=== PATIENT | female | born 1935 | race Caucasian/White ===

== ENCOUNTER 2020-04-25 12:53 | Inpatient (IN) | payer OTHER ==
[2020-04-25 13:09] VITALS: BMI 25.7
[2020-04-25] MEDS ORDERED: ADENOSINE 6 MG/2 ML VIAL IVPUSH ONE ×2 (13:09→13:20)
[2020-04-25] MEDS ORDERED: METOPROLOL TARTRATE 5 MG/5 ML VIAL ONE (13:16)
[2020-04-25] MEDS ORDERED: METOPROLOL TARTRATE 5 MG/5 ML VIAL IVPUSH ONE ×2 (13:20→13:22)
[2020-04-25] MEDS ORDERED: SODIUM CHLORIDE 1,000 ML IV ONE (13:21)
[2020-04-25] MEDS ORDERED: dilTIAZem HCL 125 MG/25 ML - 25 ML VIAL ONE (13:34)
[2020-04-25] MEDS ORDERED: dilTIAZem HCL 30 MG TABLET PO ONE (13:50)
[2020-04-25] MEDS ORDERED: dilTIAZem HCL 50 MG/10 ML - 10 ML VIAL IVPUSH ONE ×2 (13:50→13:53)
[2020-04-25 13:59] LABS: BASO % 0.2 % (0-2.0); HEMATOCRIT 41.8 % (32.4-45.2); HEMOGLOBIN 13.9 GM/dL (10.7-15.3); LYMPH % 7.8 % (8-40); MCH 30.5 pg (25.7-33.7); MCHC 33.3 g/dl (32.0-36.0); MEAN CELL VOLUME 91.7 fl (80-96); MEAN PLT VOLUME 9.7 fl (7.5-11.1); MONO % 6.6 % (3.8-10.2); NEUT % 85.4 % (42.8-82.8); PLATELET COUNT 252 K/MM3 (134-434); RBC 4.56 M/mm3 (3.60-5.2); RDW 12.4 % (11.6-15.6); WHITE BLOOD COUNT 9.1 K/mm3 (4.0-10.0)
[2020-04-25 14:04] LABS: INR 1.13 (0.83-1.09); PROTHROMBIN TIME (PATIENT) 13.6 SEC (9.7-13.0)
[2020-04-25] MEDS ORDERED: dilTIAZem HCL 30 MG TABLET ONE (14:05)
[2020-04-25 14:21] LABS: POTASSIUM 5.1 mmol/L (3.5-5.1)
[2020-04-25 14:25] LABS: CALCIUM 9.1 mg/dL (8.5-10.1)
[2020-04-25 14:26] LABS: BLOOD UREA NITROGEN 43.7 mg/dL (7-18)
[2020-04-25 14:29] LABS: CREATININE 1.5 mg/dL (0.55-1.3)
[2020-04-25 14:30] LABS: BILIRUBIN,TOTAL 0.6 mg/dL (0.2-1); TOT PROT 7.8 g/dl (6.4-8.2)
[2020-04-25] MEDS ORDERED: ASPIRIN 81 MG CHEWABLE TABLETS PO ONE (15:53)
[2020-04-25] MEDS ORDERED: SODIUM CHLORIDE 500 ML IV STA (15:55)
[2020-04-25] MEDS ORDERED: ASPIRIN 81 MG CHEWABLE TABLETS ONE (15:57)
[2020-04-25] MEDS ORDERED: SODIUM CHLORIDE 250 ML IV STA (17:40)
[2020-04-25] MEDS ORDERED: SODIUM CHLORIDE 0.9% 500 ML INFUS.BAG IV ONE (18:29)
[2020-04-25] MEDS: APIXABAN 2.5 MG TABLET PO SCH (22:18)
[2020-04-25] MEDS: ASCORBIC ACID 500 MG TABLET (FP) PO SCH (22:18)
[2020-04-25] MEDS: INSULIN SLIDING SCALE (NOVOLOG) 1 VIAL SQ SCH (22:38)
[2020-04-26] MEDS: INSULIN SLIDING SCALE (NOVOLOG) 1 VIAL SQ SCH ×4 (06:48→21:51)
[2020-04-26 07:47] LABS: BASO % 0.3 % (0-2.0); HEMATOCRIT 36.8 % (32.4-45.2); HEMOGLOBIN 12.5 GM/dL (10.7-15.3); LYMPH % 11.3 % (8-40); MCH 30.9 pg (25.7-33.7); MEAN PLT VOLUME 9.1 fl (7.5-11.1); MONO % 6.8 % (3.8-10.2); NEUT % 81.6 % (42.8-82.8); PLATELET COUNT 222 K/MM3 (134-434); RBC 4.04 M/mm3 (3.60-5.2); RDW 12.7 % (11.6-15.6); WHITE BLOOD COUNT 8.9 K/mm3 (4.0-10.0)
[2020-04-26 08:03] LABS: ACTIVATED PTT 27.9 SECONDS (25.2-36.5); INR 1.18 (0.83-1.09); PROTHROMBIN TIME (PATIENT) 14.5 SEC (9.7-13.0)
[2020-04-26 08:30] LABS: ALBUMIN 2.7 g/dl (3.4-5.0); BLOOD UREA NITROGEN 41.2 mg/dL (7-18); CALCIUM 8.7 mg/dL (8.5-10.1); MAGNESIUM 2.1 mg/dL (1.8-2.4)
[2020-04-26 08:33] LABS: BILIRUBIN,TOTAL 0.6 mg/dL (0.2-1); CREATININE 0.9 mg/dL (0.55-1.3); PHOSPHOROUS 3.9 mg/dL (2.5-4.9)
[2020-04-26 08:35] LABS: TOT PROT 6.8 g/dl (6.4-8.2)
[2020-04-26] MEDS ORDERED: METOPROLOL TARTRATE 25 MG TABLET (FP) PO SCH ×2 (10:00)
[2020-04-26] MEDS: CHOLECALCIFEROL (VIT D3) 1,000 UNIT (25 MCG) TABLET PO SCH (10:39)
[2020-04-26] MEDS: ASCORBIC ACID 500 MG TABLET (FP) PO SCH ×2 (10:39→21:49)
[2020-04-26] MEDS: DEXAMETHASONE SOD PHOSPHATE 4 MG/1 ML VIAL IVPUSH SCH (10:39)
[2020-04-26] MEDS: APIXABAN 2.5 MG TABLET PO SCH (10:39)
[2020-04-26] MEDS: ZINC SULFATE 220 MG CAPSULE (FP) PO SCH (10:39)
[2020-04-26] MEDS ORDERED: REMDESIVIR 200 MG in SODIUM CHLORIDE 210 ML IVPB ONE (13:00)
[2020-04-26] MEDS ORDERED: METOPROLOL TARTRATE 5 MG/5 ML VIAL ONE (19:10)
[2020-04-26] MEDS ORDERED: METOPROLOL TARTRATE 5 MG/5 ML VIAL IVPUSH ONE (19:10)
[2020-04-26] MEDS: DILTIAZEM INJECTION 125 MG in SODIUM CHLORIDE 100 ML IVPB SCH (19:30)
[2020-04-26] MEDS: METOPROLOL TARTRATE 25 MG TABLET (FP) PO SCH (21:48)
[2020-04-26] MEDS: APIXABAN 5 MG TABLET PO SCH (21:49)
[2020-04-26] MEDS: dilTIAZem HCL 30 MG TABLET PO SCH (23:37)
[2020-04-27] MEDS ORDERED: METOPROLOL TARTRATE 25 MG TABLET (FP) PO ONE (00:45)
[2020-04-27] MEDS: DILTIAZEM INJECTION 125 MG in SODIUM CHLORIDE 100 ML IVPB SCH ×2 (01:10→03:00)
[2020-04-27] MEDS ORDERED: ACETAMINOPHEN 1000 MG/100 ML VIAL (NON FORMULARY) IVPB ONE (01:16)
[2020-04-27] MEDS ORDERED: ACETAMINOPHEN INJECTION 100 ML IVPB ONE (01:17)
[2020-04-27] MEDS ORDERED: DIGOXIN 0.25 MG TABLET (FP) ONE ×2 (02:53→04:54)
[2020-04-27] MEDS: DIGOXIN 0.25 MG TABLET (FP) PO SCH ×3 (02:54→09:46)
[2020-04-27] MEDS ORDERED: SODIUM CHLORIDE 250 ML IV STA (04:16)
[2020-04-27] MEDS: INSULIN SLIDING SCALE (NOVOLOG) 1 VIAL SQ SCH ×4 (06:42→21:26)
[2020-04-27] MEDS: dilTIAZem HCL 30 MG TABLET PO SCH (06:42)
[2020-04-27 08:05] LABS: HEMATOCRIT 37.2 % (32.4-45.2); HEMOGLOBIN 12.5 GM/dL (10.7-15.3); LYMPH % 2.8 % (8-40); MCH 30.4 pg (25.7-33.7); MCHC 33.7 g/dl (32.0-36.0); MEAN CELL VOLUME 90.3 fl (80-96); MEAN PLT VOLUME 10.1 fl (7.5-11.1); MONO % 3.7 % (3.8-10.2); NEUT % 93.5 % (42.8-82.8); PLATELET COUNT 86 K/MM3 (134-434); RBC 4.12 M/mm3 (3.60-5.2); RDW 12.7 % (11.6-15.6); WHITE BLOOD COUNT 11.6 K/mm3 (4.0-10.0)
[2020-04-27 08:27] LABS: POTASSIUM 3.7 mmol/L (3.5-5.1)
[2020-04-27 08:37] LABS: CHOLESTEROL 199 mg/dL (50-200)
[2020-04-27 08:39] LABS: CALCIUM 8.5 mg/dL (8.5-10.1); LDL CHOLESTEROL (ONLY SJRH) 118 mg/dL (5-100); TRIGLYCERIDES 76 mg/dL (0-150)
[2020-04-27 08:40] LABS: ALBUMIN 2.5 g/dl (3.4-5.0); BLOOD UREA NITROGEN 33.4 mg/dL (7-18); HDL CHOLESTEROL 61 mg/dL (40-60)
[2020-04-27 08:41] LABS: CREATININE 0.9 mg/dL (0.55-1.3)
[2020-04-27 08:43] LABS: BILIRUBIN,TOTAL 0.4 mg/dL (0.2-1); TOT PROT 6.4 g/dl (6.4-8.2)
[2020-04-27] MEDS: DEXAMETHASONE SOD PHOSPHATE 4 MG/1 ML VIAL IVPUSH SCH (09:46)
[2020-04-27] MEDS: ZINC SULFATE 220 MG CAPSULE (FP) PO SCH (09:46)
[2020-04-27] MEDS: METOPROLOL TARTRATE 25 MG TABLET (FP) PO SCH ×2 (09:46→21:14)
[2020-04-27] MEDS: ASCORBIC ACID 500 MG TABLET (FP) PO SCH ×2 (09:46→21:14)
[2020-04-27] MEDS: CHOLECALCIFEROL (VIT D3) 1,000 UNIT (25 MCG) TABLET PO SCH (09:46)
[2020-04-27] MEDS: APIXABAN 5 MG TABLET PO SCH ×2 (09:46→21:15)
[2020-04-27] MEDS ORDERED: dilTIAZem HCL 25 MG/5 ML - 5 ML VIAL IVPUSH ONE (10:17)
[2020-04-27 11:04] LABS: ANISOCYTOSIS 0; MACROCYTOSIS 0; PLATELET ESTIMATE DECREASED
[2020-04-27] MEDS: AMIODARONE HCL 200 MG TABLET PO SCH ×2 (12:25→21:14)
[2020-04-27] MEDS: REMDESIVIR 100 MG in SODIUM CHLORIDE 230 ML IVPB SCH (13:14)
[2020-04-28] MEDS: INSULIN SLIDING SCALE (NOVOLOG) 1 VIAL SQ SCH ×4 (06:15→22:17)
[2020-04-28 07:32] LABS: BASO % 0.1 % (0-2.0); HEMATOCRIT 39.8 % (32.4-45.2); HEMOGLOBIN 13.5 GM/dL (10.7-15.3); LYMPH % 2.4 % (8-40); MCH 30.8 pg (25.7-33.7); MCHC 33.9 g/dl (32.0-36.0); MEAN CELL VOLUME 90.8 fl (80-96); MEAN PLT VOLUME 10.3 fl (7.5-11.1); NEUT % 93.5 % (42.8-82.8); PLATELET COUNT 102 K/MM3 (134-434); RBC 4.38 M/mm3 (3.60-5.2); RDW 12.9 % (11.6-15.6); WHITE BLOOD COUNT 10.6 K/mm3 (4.0-10.0)
[2020-04-28 07:42] LABS: POTASSIUM 4.1 mmol/L (3.5-5.1)
[2020-04-28 07:47] LABS: ALBUMIN 2.5 g/dl (3.4-5.0); CALCIUM 8.6 mg/dL (8.5-10.1); MAGNESIUM 2.1 mg/dL (1.8-2.4)
[2020-04-28 07:51] LABS: CREATININE 0.9 mg/dL (0.55-1.3)
[2020-04-28 07:52] LABS: BILIRUBIN,TOTAL 0.4 mg/dL (0.2-1); TOT PROT 6.8 g/dl (6.4-8.2)
[2020-04-28] MEDS: CHOLECALCIFEROL (VIT D3) 1,000 UNIT (25 MCG) TABLET PO SCH (09:37)
[2020-04-28] MEDS: AMINO ACIDS/PROTEIN HYDROLYS 30 ML LIQUID.PKT PO SCH (09:39)
[2020-04-28] MEDS: ASCORBIC ACID 500 MG TABLET (FP) PO SCH ×2 (09:39→22:10)
[2020-04-28] MEDS: DEXAMETHASONE SOD PHOSPHATE 4 MG/1 ML VIAL IVPUSH SCH (09:39)
[2020-04-28] MEDS: AMIODARONE HCL 200 MG TABLET PO SCH ×2 (09:39→22:10)
[2020-04-28] MEDS: MULTIVITAMINS THER W-MINERALS COMBO TABLET (FP) PO SCH (09:40)
[2020-04-28] MEDS: APIXABAN 5 MG TABLET PO SCH ×2 (09:40→22:10)
[2020-04-28] MEDS: ZINC SULFATE 220 MG CAPSULE (FP) PO SCH (09:40)
[2020-04-28] MEDS: METOPROLOL TARTRATE 25 MG TABLET (FP) PO SCH ×2 (09:46→22:20)
[2020-04-28 10:16] LABS: ANISOCYTOSIS 0; HELMET CELLS 0; HOWELL-JOLLY BODIES 0; MACROCYTOSIS 0; OVALOCYTE 0; PLATELET ESTIMATE DECREASED; ROULEAU 0; SICKELED CELLS 0; TARGET CELLS 0; TEAR DROP CELLS 0; TOXIC GRANULATION 0
[2020-04-28] MEDS: METOPROLOL TARTRATE 5 MG/5 ML VIAL IVPUSH PRN (12:13)
[2020-04-28] MEDS: REMDESIVIR 100 MG in SODIUM CHLORIDE 230 ML IVPB SCH (12:36)
[2020-04-28] MEDS: INSULIN (LEVEMIR) 100 UNITS/ML UNITS SQ SCH (22:14)
[2020-04-29] MEDS: INSULIN SLIDING SCALE (NOVOLOG) 1 VIAL SQ SCH ×4 (06:23→23:23)
[2020-04-29 07:22] LABS: HEMATOCRIT 39.4 % (32.4-45.2); HEMOGLOBIN 13.2 GM/dL (10.7-15.3); LYMPH % 2.1 % (8-40); MCH 30.3 pg (25.7-33.7); MCHC 33.6 g/dl (32.0-36.0); MEAN PLT VOLUME 10.3 fl (7.5-11.1); MONO % 6.1 % (3.8-10.2); NEUT % 91.8 % (42.8-82.8); PLATELET COUNT 156 K/MM3 (134-434); RBC 4.37 M/mm3 (3.60-5.2); RDW 12.9 % (11.6-15.6)
[2020-04-29 07:23] LABS: CALCIUM 8.8 mg/dL (8.5-10.1)
[2020-04-29 07:24] LABS: ALBUMIN 2.5 g/dl (3.4-5.0); MAGNESIUM 2.3 mg/dL (1.8-2.4)
[2020-04-29 07:27] LABS: BILIRUBIN,TOTAL 0.5 mg/dL (0.2-1); CREATININE 0.9 mg/dL (0.55-1.3)
[2020-04-29 07:28] LABS: TOT PROT 6.8 g/dl (6.4-8.2)
[2020-04-29] MEDS: METOPROLOL TARTRATE 5 MG/5 ML VIAL IVPUSH PRN (09:06)
[2020-04-29] MEDS: CHOLECALCIFEROL (VIT D3) 1,000 UNIT (25 MCG) TABLET PO SCH (09:07)
[2020-04-29] MEDS: APIXABAN 5 MG TABLET PO SCH ×2 (09:07→23:22)
[2020-04-29] MEDS: MULTIVITAMINS THER W-MINERALS COMBO TABLET (FP) PO SCH (09:07)
[2020-04-29] MEDS: DEXAMETHASONE SOD PHOSPHATE 4 MG/1 ML VIAL IVPUSH SCH (09:07)
[2020-04-29] MEDS: AMINO ACIDS/PROTEIN HYDROLYS 30 ML LIQUID.PKT PO SCH (09:07)
[2020-04-29] MEDS: METOPROLOL TARTRATE 25 MG TABLET (FP) PO SCH (09:07)
[2020-04-29] MEDS: ASCORBIC ACID 500 MG TABLET (FP) PO SCH ×2 (09:07→23:22)
[2020-04-29] MEDS: ZINC SULFATE 220 MG CAPSULE (FP) PO SCH (09:07)
[2020-04-29] MEDS: AMIODARONE HCL 200 MG TABLET PO SCH ×2 (09:07→23:21)
[2020-04-29 09:09] LABS: ANISOCYTOSIS 1+; MACROCYTOSIS 0; PLATELET ESTIMATE DECREASED
[2020-04-29] MEDS ORDERED: LORazepam 0.5 MG TABLET PO PRN (09:22)
[2020-04-29 09:44] LABS: BLOOD UREA NITROGEN 42.4 mg/dL (7-18)
[2020-04-29] MEDS ORDERED: LORazepam 0.5 MG TABLET PO ONE (09:45)
[2020-04-29] MEDS ORDERED: LORazepam 2 MG/ML SDV VIAL IVPUSH ONE (13:00)
[2020-04-29] MEDS: REMDESIVIR 100 MG in SODIUM CHLORIDE 230 ML IVPB SCH (13:19)
[2020-04-29] MEDS: METOPROLOL TARTRATE 50 MG TABLET (FP) PO SCH (23:22)
[2020-04-29] MEDS: INSULIN (LEVEMIR) 100 UNITS/ML UNITS SQ SCH (23:23)
[2020-04-30] MEDS: INSULIN SLIDING SCALE (NOVOLOG) 1 VIAL SQ SCH ×4 (06:55→22:23)
[2020-04-30] MEDS ORDERED: LORazepam 2 MG/ML SDV VIAL IVPUSH ONE (09:18)
[2020-04-30] MEDS: ASCORBIC ACID 500 MG TABLET (FP) PO SCH ×2 (10:15→22:22)
[2020-04-30] MEDS: APIXABAN 5 MG TABLET PO SCH ×2 (10:15→22:22)
[2020-04-30] MEDS: AMINO ACIDS/PROTEIN HYDROLYS 30 ML LIQUID.PKT PO SCH (10:15)
[2020-04-30] MEDS: MULTIVITAMINS THER W-MINERALS COMBO TABLET (FP) PO SCH (10:15)
[2020-04-30] MEDS: AMIODARONE HCL 200 MG TABLET PO SCH ×2 (10:15→22:22)
[2020-04-30] MEDS: DEXAMETHASONE SOD PHOSPHATE 4 MG/1 ML VIAL IVPUSH SCH (10:15)
[2020-04-30] MEDS: CHOLECALCIFEROL (VIT D3) 1,000 UNIT (25 MCG) TABLET PO SCH (10:16)
[2020-04-30] MEDS: METOPROLOL TARTRATE 50 MG TABLET (FP) PO SCH ×2 (10:16→22:22)
[2020-04-30] MEDS: ZINC SULFATE 220 MG CAPSULE (FP) PO SCH (10:16)
[2020-04-30] MEDS: REMDESIVIR 100 MG in SODIUM CHLORIDE 230 ML IVPB SCH (12:10)
[2020-04-30] MEDS ORDERED: MORPHINE SULFATE 2 MG/ML VIAL IVPUSH PRN (13:55)
[2020-04-30 14:40] LABS: HEMATOCRIT 40.8 % (32.4-45.2); HEMOGLOBIN 13.5 GM/dL (10.7-15.3); LYMPH % 1.7 % (8-40); MCH 29.9 pg (25.7-33.7); MCHC 33.2 g/dl (32.0-36.0); MONO % 7.2 % (3.8-10.2); NEUT % 91.1 % (42.8-82.8); PLATELET COUNT 213 K/MM3 (134-434); RBC 4.54 M/mm3 (3.60-5.2); RDW 12.8 % (11.6-15.6); WHITE BLOOD COUNT 15.4 K/mm3 (4.0-10.0)
[2020-04-30 15:00] LABS: POTASSIUM 3.9 mmol/L (3.5-5.1)
[2020-04-30 15:02] LABS: CALCIUM 9.2 mg/dL (8.5-10.1)
[2020-04-30 15:03] LABS: ALBUMIN 2.6 g/dl (3.4-5.0); BLOOD UREA NITROGEN 36.3 mg/dL (7-18)
[2020-04-30 15:04] LABS: MAGNESIUM 2.2 mg/dL (1.8-2.4)
[2020-04-30 15:06] LABS: CREATININE 0.7 mg/dL (0.55-1.3)
[2020-04-30 15:08] LABS: BILIRUBIN,TOTAL 0.9 mg/dL (0.2-1); TOT PROT 6.7 g/dl (6.4-8.2)
[2020-04-30 15:42] LABS: ANISOCYTOSIS 0; MACROCYTOSIS 0; PLATELET ESTIMATE NORMAL
[2020-04-30] MEDS: MORPHINE SULFATE 2 MG/ML VIAL IVPUSH PRN ×2 (16:32→22:23)
[2020-04-30] MEDS: INSULIN (LEVEMIR) 100 UNITS/ML UNITS SQ SCH (22:22)
[2020-05-01] MEDS: MORPHINE SULFATE 2 MG/ML VIAL IVPUSH PRN (03:30)
[2020-05-01] MEDS: INSULIN SLIDING SCALE (NOVOLOG) 1 VIAL SQ SCH ×3 (06:57→17:21)
[2020-05-01 07:18] LABS: BASO % 0.2 % (0-2.0); HEMATOCRIT 38.1 % (32.4-45.2); HEMOGLOBIN 12.7 GM/dL (10.7-15.3); LYMPH % 2.1 % (8-40); MCH 30.3 pg (25.7-33.7); MCHC 33.5 g/dl (32.0-36.0); MEAN CELL VOLUME 90.7 fl (80-96); MEAN PLT VOLUME 10.4 fl (7.5-11.1); MONO % 9.9 % (3.8-10.2); NEUT % 87.8 % (42.8-82.8); PLATELET COUNT 228 K/MM3 (134-434); WHITE BLOOD COUNT 15.1 K/mm3 (4.0-10.0)
[2020-05-01 07:30] LABS: POTASSIUM 4.3 mmol/L (3.5-5.1)
[2020-05-01 07:46] LABS: BLOOD UREA NITROGEN 35.1 mg/dL (7-18)
[2020-05-01 07:47] LABS: ALBUMIN 2.6 g/dl (3.4-5.0)
[2020-05-01 07:49] LABS: MAGNESIUM 2.2 mg/dL (1.8-2.4)
[2020-05-01 07:50] LABS: CREATININE 0.7 mg/dL (0.55-1.3)
[2020-05-01 07:51] LABS: BILIRUBIN,TOTAL 0.6 mg/dL (0.2-1); TOT PROT 6.8 g/dl (6.4-8.2)
[2020-05-01] MEDS ORDERED: LORazepam 2 MG/ML SDV VIAL IVPUSH ONE (09:30)
[2020-05-01] MEDS: DEXAMETHASONE SOD PHOSPHATE 4 MG/1 ML VIAL IVPUSH SCH (10:49)
[2020-05-01] MEDS: ZINC SULFATE 220 MG CAPSULE (FP) PO SCH (10:50)
[2020-05-01] MEDS: MULTIVITAMINS THER W-MINERALS COMBO TABLET (FP) PO SCH (10:51)
[2020-05-01] MEDS: AMIODARONE HCL 200 MG TABLET PO SCH (10:51)
[2020-05-01] MEDS: CHOLECALCIFEROL (VIT D3) 1,000 UNIT (25 MCG) TABLET PO SCH (10:51)
[2020-05-01] MEDS: METOPROLOL TARTRATE 50 MG TABLET (FP) PO SCH (10:51)
[2020-05-01] MEDS: ASCORBIC ACID 500 MG TABLET (FP) PO SCH (10:51)
[2020-05-01] MEDS: AMINO ACIDS/PROTEIN HYDROLYS 30 ML LIQUID.PKT PO SCH (10:51)
[2020-05-01] MEDS: APIXABAN 5 MG TABLET PO SCH (10:51)
[2020-05-02] MEDS: APIXABAN 5 MG TABLET PO SCH ×3 (00:30→21:38)
[2020-05-02] MEDS: METOPROLOL TARTRATE 50 MG TABLET (FP) PO SCH ×3 (00:30→21:38)
[2020-05-02] MEDS: ASCORBIC ACID 500 MG TABLET (FP) PO SCH ×3 (00:31→21:38)
[2020-05-02] MEDS: INSULIN (LEVEMIR) 100 UNITS/ML UNITS SQ SCH (03:06)
[2020-05-02] MEDS: INSULIN SLIDING SCALE (NOVOLOG) 1 VIAL SQ SCH ×5 (03:07→21:43)
[2020-05-02] MEDS: MORPHINE SULFATE 2 MG/ML VIAL IVPUSH PRN ×4 (06:59→23:30)
[2020-05-02 08:24] LABS: BASO % 0.2 % (0-2.0); HEMATOCRIT 39.7 % (32.4-45.2); LYMPH % 1.3 % (8-40); MCH 30.1 pg (25.7-33.7); MCHC 32.8 g/dl (32.0-36.0); MEAN CELL VOLUME 91.9 fl (80-96); MEAN PLT VOLUME 10.6 fl (7.5-11.1); MONO % 4.1 % (3.8-10.2); NEUT % 94.4 % (42.8-82.8); PLATELET COUNT 233 K/MM3 (134-434); RBC 4.33 M/mm3 (3.60-5.2); RDW 12.9 % (11.6-15.6); WHITE BLOOD COUNT 12.2 K/mm3 (4.0-10.0)
[2020-05-02 08:25] LABS: POTASSIUM 4.3 mmol/L (3.5-5.1)
[2020-05-02 08:33] LABS: ALBUMIN 2.6 g/dl (3.4-5.0); BLOOD UREA NITROGEN 48.8 mg/dL (7-18); CALCIUM 8.9 mg/dL (8.5-10.1)
[2020-05-02 08:34] LABS: MAGNESIUM 2.2 mg/dL (1.8-2.4)
[2020-05-02 08:35] LABS: BILIRUBIN,TOTAL 0.7 mg/dL (0.2-1); TOT PROT 6.6 g/dl (6.4-8.2)
[2020-05-02] MEDS ORDERED: INSULIN (LEVEMIR) 100 UNITS/ML UNITS SQ SCH (09:38)
[2020-05-02 10:30] LABS: ANISOCYTOSIS 0; MACROCYTOSIS 0; PLATELET ESTIMATE NORMAL
[2020-05-02] MEDS: AMINO ACIDS 4.25%/D5W 1,000 ML IV SCH (11:18)
[2020-05-02] MEDS: CHOLECALCIFEROL (VIT D3) 1,000 UNIT (25 MCG) TABLET PO SCH (11:18)
[2020-05-02] MEDS: AMINO ACIDS/PROTEIN HYDROLYS 30 ML LIQUID.PKT PO SCH (11:18)
[2020-05-02] MEDS: AMIODARONE HCL 200 MG TABLET PO SCH (11:19)
[2020-05-02] MEDS: DEXAMETHASONE SOD PHOSPHATE 4 MG/1 ML VIAL IVPUSH SCH (11:20)
[2020-05-02] MEDS: ZINC SULFATE 220 MG CAPSULE (FP) PO SCH (11:20)
[2020-05-02] MEDS: MULTIVITAMINS THER W-MINERALS COMBO TABLET (FP) PO SCH (11:20)
[2020-05-03] MEDS: MORPHINE SULFATE 2 MG/ML VIAL IVPUSH PRN ×3 (05:09→22:43)
[2020-05-03] MEDS: INSULIN SLIDING SCALE (NOVOLOG) 1 VIAL SQ SCH ×4 (06:10→22:52)
[2020-05-03 08:39] LABS: BASO % 0.5 % (0-2.0); HEMATOCRIT 42.7 % (32.4-45.2); HEMOGLOBIN 13.6 GM/dL (10.7-15.3); LYMPH % 1.6 % (8-40); MCH 29.7 pg (25.7-33.7); MEAN CELL VOLUME 92.9 fl (80-96); MEAN PLT VOLUME 10.3 fl (7.5-11.1); MONO % 2.5 % (3.8-10.2); NEUT % 95.4 % (42.8-82.8); PLATELET COUNT 221 K/MM3 (134-434); RDW 13.2 % (11.6-15.6); WHITE BLOOD COUNT 14.2 K/mm3 (4.0-10.0)
[2020-05-03 08:48] LABS: POTASSIUM 4.3 mmol/L (3.5-5.1)
[2020-05-03 09:03] LABS: CALCIUM 8.7 mg/dL (8.5-10.1)
[2020-05-03 09:04] LABS: ALBUMIN 2.3 g/dl (3.4-5.0); BLOOD UREA NITROGEN 61.9 mg/dL (7-18); MAGNESIUM 2.6 mg/dL (1.8-2.4)
[2020-05-03 09:07] LABS: TOT PROT 6.5 g/dl (6.4-8.2)
[2020-05-03 09:08] LABS: BILIRUBIN,TOTAL 0.3 mg/dL (0.2-1)
[2020-05-03] MEDS ORDERED: INSULIN (LEVEMIR) 100 UNITS/ML UNITS SQ SCH (09:51)
[2020-05-03] MEDS: AMINO ACIDS/PROTEIN HYDROLYS 30 ML LIQUID.PKT PO SCH (11:28)
[2020-05-03 11:29] LABS: ANISOCYTOSIS 0; HELMET CELLS 0; HOWELL-JOLLY BODIES 0; MACROCYTOSIS 0; OVALOCYTE 0; PLATELET ESTIMATE NORMAL; ROULEAU 0; SICKELED CELLS 0; TARGET CELLS 0; TEAR DROP CELLS 0; TOXIC GRANULATION 0
[2020-05-03] MEDS: AMINO ACIDS 4.25%/D5W 1,000 ML IV SCH (11:30)
[2020-05-03] MEDS: ENOXAPARIN NA (PORCINE) 80 MG/0.8 ML DISP.SYRIN SQ SCH ×2 (11:30→22:43)
[2020-05-03] MEDS: DEXAMETHASONE SOD PHOSPHATE 4 MG/1 ML VIAL IVPUSH SCH (11:34)
[2020-05-03] MEDS: AMIODARONE HCL 200 MG TABLET PO SCH (11:39)
[2020-05-03] MEDS: METOPROLOL TARTRATE 50 MG TABLET (FP) PO SCH ×2 (11:39→22:46)
[2020-05-03] MEDS: METOPROLOL TARTRATE 5 MG/5 ML VIAL IVPUSH PRN ×2 (12:51→20:01)
[2020-05-03] MEDS ORDERED: ACETAMINOPHEN 1000 MG/100 ML VIAL (NON FORMULARY) IVPB ONE (13:14)
[2020-05-03] MEDS ORDERED: ACETAMINOPHEN 1000 MG/100 ML VIAL (NON FORMULARY) IVPB PRN (17:37)
[2020-05-03] MEDS ORDERED: LORazepam 2 MG/ML SDV VIAL IVPUSH ONE (21:18)
[2020-05-04] MEDS: METOPROLOL TARTRATE 5 MG/5 ML VIAL IVPUSH PRN ×3 (00:11→17:10)
[2020-05-04] MEDS ORDERED: AMIODARONE HCL 150 MG/3 ML VIAL IVPUSH ONE (02:06)
[2020-05-04] MEDS ORDERED: AMIODARONE IN DEXTROSE,ISO-OSM 150 MG/100 ML BAG IVPB ONE (02:15)
[2020-05-04] MEDS ORDERED: AMIODARONE IN DEXTROSE,ISO-OSM 360 MG/200 ML BAG IVPB ONE (02:20)
[2020-05-04] MEDS ORDERED: ACETAMINOPHEN 1000 MG/100 ML VIAL (NON FORMULARY) IVPB PRN (03:11)
[2020-05-04] MEDS: MORPHINE SULFATE 2 MG/ML VIAL IVPUSH PRN ×4 (03:42→16:51)
[2020-05-04] MEDS: AMINO ACIDS 4.25%/D5W 1,000 ML IV SCH ×2 (04:30→10:33)
[2020-05-04] MEDS: INSULIN SLIDING SCALE (NOVOLOG) 1 VIAL SQ SCH ×4 (06:01→21:56)
[2020-05-04 07:52] LABS: HEMATOCRIT 45.3 % (32.4-45.2); HEMOGLOBIN 14.9 GM/dL (10.7-15.3); LYMPH % 1.4 % (8-40); MCH 30.3 pg (25.7-33.7); MCHC 32.8 g/dl (32.0-36.0); MEAN CELL VOLUME 92.4 fl (80-96); MEAN PLT VOLUME 10.1 fl (7.5-11.1); MONO % 2.8 % (3.8-10.2); NEUT % 95.8 % (42.8-82.8); PLATELET COUNT 241 K/MM3 (134-434); RDW 13.3 % (11.6-15.6); WHITE BLOOD COUNT 17.3 K/mm3 (4.0-10.0)
[2020-05-04] MEDS ORDERED: AMINO ACIDS/PROTEIN HYDROLYS 30 ML LIQUID.PKT PO SCH (08:00)
[2020-05-04 08:45] LABS: POTASSIUM 4.1 mmol/L (3.5-5.1)
[2020-05-04 08:48] LABS: ALBUMIN 2.4 g/dl (3.4-5.0); BLOOD UREA NITROGEN 69.9 mg/dL (7-18); CALCIUM 9.2 mg/dL (8.5-10.1); MAGNESIUM 2.6 mg/dL (1.8-2.4)
[2020-05-04 08:52] LABS: BILIRUBIN,TOTAL 0.3 mg/dL (0.2-1); TOT PROT 6.9 g/dl (6.4-8.2)
[2020-05-04] MEDS: DEXAMETHASONE SOD PHOSPHATE 4 MG/1 ML VIAL IVPUSH SCH (10:00)
[2020-05-04] MEDS ORDERED: METOPROLOL TARTRATE 50 MG TABLET (FP) PO SCH (10:00)
[2020-05-04] MEDS: ENOXAPARIN NA (PORCINE) 80 MG/0.8 ML DISP.SYRIN SQ SCH ×2 (10:09→22:00)
[2020-05-04] MEDS: AMIODARONE HCL 200 MG TABLET PO SCH (10:33)
[2020-05-04 10:35] LABS: ANISOCYTOSIS 0; MACROCYTOSIS 0; PLATELET ESTIMATE NORMAL
[2020-05-04] MEDS ORDERED: DEXTROSE 5%-WATER - 50 ML IVPB ONE (16:12)
[2020-05-04] MEDS ORDERED: cefTRIAXone SODIUM 1 GM VIAL ONE (16:12)
[2020-05-04] MEDS: CEFTRIAXONE 1 GM in DEXTROSE 5%-WATER - 50 ML IVPB SCH (16:16)
[2020-05-04] MEDS ORDERED: DEXTROSE 5%-WATER - 1,000 ML IV SCH (17:45)
[2020-05-04] MEDS ORDERED: LORazepam 2 MG/ML SDV VIAL IVPUSH PRN (17:54)
[2020-05-04] MEDS ORDERED: LORazepam 2 MG/ML SDV VIAL ONE (17:55)
[2020-05-04] MEDS ORDERED: INSULIN (LEVEMIR) 100 UNITS/ML UNITS SQ SCH (22:00)
[2020-05-05] MEDS: INSULIN SLIDING SCALE (NOVOLOG) 1 VIAL SQ SCH ×2 (06:39→12:11)
[2020-05-05] MEDS ORDERED: cefTRIAXone SODIUM 1 GM VIAL ONE (09:17)
[2020-05-05] MEDS ORDERED: DEXTROSE 5%-WATER - 50 ML IVPB ONE (09:18)
[2020-05-05] MEDS: AMIODARONE HCL 200 MG TABLET PO SCH (09:50)
[2020-05-05] MEDS: DEXAMETHASONE SOD PHOSPHATE 4 MG/1 ML VIAL IVPUSH SCH (09:50)
[2020-05-05] MEDS: CEFTRIAXONE 1 GM in DEXTROSE 5%-WATER - 50 ML IVPB SCH (09:50)
[2020-05-05] MEDS: ENOXAPARIN NA (PORCINE) 80 MG/0.8 ML DISP.SYRIN SQ SCH (09:51)
[2020-05-05] MEDS: AMINO ACIDS 4.25%/D5W 1,000 ML IV SCH (12:10)
[2020-05-05 14:38] VITALS: BP 86/50; PULSE 76; TEMP 98.3
[2020-05-05 15:16] LABS: ALBUMIN 2.2 g/dl (3.4-5.0); BILIRUBIN,TOTAL 0.2 mg/dL (0.2-1); BLOOD UREA NITROGEN 92.7 mg/dL (7-18); CALCIUM 8.4 mg/dL (8.5-10.1); CREATININE 2.3 mg/dL (0.55-1.3); MAGNESIUM 2.7 mg/dL (1.8-2.4); TOT PROT 6.4 g/dl (6.4-8.2)
[2020-05-05 15:21] LABS: POTASSIUM 6.4 mmol/L (3.5-5.1)
== END 2020-05-05 16:53 | disposition expired | DRG 177 ==
LOC: JER 12:53 → JERBED 16:19 → INTOOBSV 16:19 → J4W 21:18 → OBSVTOIN 04-26 15:13 → J4W 04-26 22:00 → J6S 05-03 18:14 → J4W 05-04 02:50
PROVIDERS: ADMIT Internal Medicine; ATTEND Internal Medicine
PROC: XW13325 Transfusion of Convalescent Plasma (Nonautologous) into Peripheral Vein, Percutaneous Approach, New Technology Group 5 (ICD-10-PCS; principal; 2020-04-26)
PROC: XW033E5 Introduction of Remdesivir Anti-infective into Peripheral Vein, Percutaneous Approach, New Technology Group 5 (ICD-10-PCS; 2020-04-26)
DX: U07.1 COVID-19 (principal); J96.01 Acute respiratory failure with hypoxia; J12.82 Pneumonia due to coronavirus disease 2019; I48.92 Unspecified atrial flutter; I47.1 Supraventricular tachycardia; C85.90 Non-Hodgkin lymphoma, unspecified, unspecified site; A08.39 Other viral enteritis; N17.9 Acute kidney failure, unspecified; E11.9 Type 2 diabetes mellitus without complications; I10 Essential (primary) hypertension; E78.5 Hyperlipidemia, unspecified; N18.2 Chronic kidney disease, stage 2 (mild)
CPT/HCPCS: 36415; 36430; 71045-TC-FY; 80053; 80061; 82010; 82550; 82553; 82728; 82947; 82962; 83036; 83615; 83721; 83735; 83880; 84100; 84443; 84484; 85025; 85379; 85610; 85651; 85730; 86140; 86850; 86900; 86901; 93005; 93010; 93306-TC; 94660; 99291; C9399; C9803; G0378; J0131; J0282; P9017; U0003